=== PATIENT | female | born 1970 | race Caucasian/White ===

== ENCOUNTER 2016-06-29 10:22 | Emergency (ER) | payer OTHER, MEDICAID ==
[~2016-06-29] VITALS: Ht 167.6 cm; Wt 52.2 kg
[2016-06-29] MEDS ORDERED: KETOROLAC TROMETH 60MG/2ML VIAL IM ONE (15:15)
[2016-06-29 17:07] VITALS: BP 99/58
== END 2016-06-29 17:11 | disposition home or self-care (01) ==
LOC: ER 10:24
DX: M75.102 Unspecified rotator cuff tear or rupture of left shoulder, not specified as traumatic (principal); G35 Multiple sclerosis
CPT/HCPCS: 73030; 73060; 96372; 99284; J1885

== ENCOUNTER 2022-07-07 18:01 | Inpatient (IN) | payer MEDICARE, OTHER ==
[~2022-07-07] VITALS: Ht 167.6 cm; Wt 51.7 kg
[2022-07-07 20:12] LABS: Basophils # (auto) 0 10 ^3/uL (0-0.2); Basophils % (auto) 0.5 % (0.0-2.0); Eosinophils # (auto) 0.1 10 ^3/uL (0-0.8); Eosinophils % (auto) 0.7 % (0.0-7.0); Hematocrit 29.2 % (36.0-46.0); Hemoglobin 9.7 g/dL (12.2-16.2); Lymphocytes # (auto) 0.7 10 ^3/uL (0.4-5.4); Lymphocytes % (auto) 8.5 % (10.0-50.0); Mean Corpuscular Hemoglobin 27.6 pg (28.0-32.0); Mean Corpuscular Hgb Conc. 33.3 g/dL (32.0-36.0); Mean Corpuscular Volume 82.8 fL (80.0-100.0); Monocytes # (auto) 0.6 10 ^3/uL (0-1.3); Monocytes % (auto) 7.4 % (0.0-12.0); Neutrophils # (auto) 6.8 10 ^3/uL (1.6-8.6); Neutrophils % (auto) 82.9 % (37.0-80.0); Nucleated Red Blood Cells % 0.1 %; Red Blood Cells 3.53 10^6/uL (4.0-5.20); Red Cell Distribution Width 18.7 % (11.8-14.3); White Blood Cell 8.3 10^3/uL (4.4-10.8)
[2022-07-07 20:39] LABS: Potassium 3.8 mmol/L (3.5-5.1)
[2022-07-07 20:45] LABS: Albumin 2.9 g/dL (3.4-5.0); BUN/Creatinine Ratio 32.7 (10.0-20.0); Bilirubin, Total 0.7 mg/dL (0.2-1.0); Calcium 8.1 mg/dL (8.5-10.1); Total Protein 6.2 g/dL (6.4-8.2)
[2022-07-07] MEDS ORDERED: SODIUM CHLORIDE 0.9% 1,000 ML IV ONE (23:45)
[2022-07-08] MEDS ORDERED: PIPERACILLIN-TAZOB 3.375GM 100 ML IV ONE (02:15)
[2022-07-08] MEDS ORDERED: VANCOMYCIN 1GM/250ML 250 ML IV ONE (02:15)
[2022-07-08] MEDS ORDERED: IOHEXOL 300 MG/ML 100ML BOTTLE IJ ONE (02:22)
[2022-07-08] MEDS ORDERED: ONDANSETRON HCL 4 MG/2 ML VIAL IV PRN (03:30)
[2022-07-08] MEDS ORDERED: ACETAMINOPHEN 325 MG TAB PO PRN (03:30)
[2022-07-08] MEDS ORDERED: HYDROcodone-ACET 5/325MG TAB PO PRN (03:30)
[2022-07-08] MEDS: cefTRIAXone 1GM/50ML D5W 50 ML IV SCH (09:07)
[2022-07-08] MEDS: ENOXAPARIN SOD 40 MG/0.4 ML SYRINGE SC SCH (09:07)
[2022-07-08] MEDS: PANTOPRAZOLE 40 MG TAB PO SCH (09:08)
[2022-07-08] MEDS: CLINDAMYCIN 600MG IV 50 ML IV SCH ×3 (09:57→22:36)
[2022-07-08 16:00] LABS: Urine Bacteria NONE SEEN /hpf (None Seen); Urine Blood 2+ /uL (Negative); Urine Specific Gravity 1.036 (1.001-1.035); Urine WBC 171 /hpf (0 - 5)
[2022-07-08 22:00] VITALS: BP 93/44
[2022-07-08 23:10] VITALS: BP 91/57
[2022-07-09 05:00] VITALS: BP 82/38
[2022-07-09 06:08] LABS: Basophils # (auto) 0 10 ^3/uL (0-0.2); Eosinophils # (auto) 0.1 10 ^3/uL (0-0.8); Hemoglobin 8.1 g/dL (12.2-16.2); Lymphocytes # (auto) 0.8 10 ^3/uL (0.4-5.4); Mean Corpuscular Volume 82.6 fL (80.0-100.0); Monocytes # (auto) 0.4 10 ^3/uL (0-1.3); Neutrophils # (auto) 3.2 10 ^3/uL (1.6-8.6); Nucleated Red Blood Cells % 0.1 %
[2022-07-09 06:10] LABS: Basophils % (auto) 0.6 % (0.0-2.0); Eosinophils % (auto) 2.7 % (0.0-7.0); Hematocrit 23.9 % (36.0-46.0); Lymphocytes % (auto) 17.1 % (10.0-50.0); Mean Corpuscular Hgb Conc. 33.9 g/dL (32.0-36.0); Monocytes % (auto) 8.6 % (0.0-12.0); Red Cell Distribution Width 18.9 % (11.8-14.3); White Blood Cell 4.6 10^3/uL (4.4-10.8)
[2022-07-09] MEDS: CLINDAMYCIN 600MG IV 50 ML IV SCH ×3 (06:29→21:35)
[2022-07-09 06:31] LABS: BUN/Creatinine Ratio 26.2 (10.0-20.0); Calcium 7.9 mg/dL (8.5-10.1); Potassium 3.8 mmol/L (3.5-5.1)
[2022-07-09 09:00] VITALS: BP 106/54
[2022-07-09] MEDS: cefTRIAXone 1GM/50ML D5W 50 ML IV SCH (09:00)
[2022-07-09] MEDS: PANTOPRAZOLE 40 MG TAB PO SCH (10:02)
[2022-07-09] MEDS: ENOXAPARIN SOD 40 MG/0.4 ML SYRINGE SC SCH (10:02)
[2022-07-09 13:00] VITALS: BP 92/53
[2022-07-09 17:00] VITALS: BP 113/42
[2022-07-09 22:00] VITALS: BP 107/51
[2022-07-10 05:00] VITALS: BP 105/48
[2022-07-10] MEDS: CLINDAMYCIN 600MG IV 50 ML IV SCH ×3 (06:31→21:29)
[2022-07-10 08:00] VITALS: BP 87/39
[2022-07-10 09:00] VITALS: BP 102/58
[2022-07-10] MEDS: ENOXAPARIN SOD 40 MG/0.4 ML SYRINGE SC SCH (10:05)
[2022-07-10] MEDS: PANTOPRAZOLE 40 MG TAB PO SCH (10:05)
[2022-07-10] MEDS: cefTRIAXone 1GM/50ML D5W 50 ML IV SCH (10:06)
[2022-07-10 13:00] VITALS: BP 87/39
[2022-07-10 17:06] VITALS: BP 86/39
[2022-07-10 22:00] VITALS: BP 85/43
[2022-07-11 05:00] VITALS: BP 90/35
[2022-07-11] MEDS: CLINDAMYCIN 600MG IV 50 ML IV SCH ×3 (06:31→21:15)
[2022-07-11 08:00] VITALS: BP 88/43
[2022-07-11 09:00] VITALS: BP 88/43
[2022-07-11] MEDS: cefTRIAXone 1GM/50ML D5W 50 ML IV SCH (09:06)
[2022-07-11] MEDS: ENOXAPARIN SOD 40 MG/0.4 ML SYRINGE SC SCH (09:06)
[2022-07-11] MEDS: PANTOPRAZOLE 40 MG TAB PO SCH ×2 (09:06→09:12)
[2022-07-11] MEDS ORDERED: CIPR-273 PO (10:17)
[2022-07-11 13:00] VITALS: BP 81/36
[2022-07-11 17:00] VITALS: BP 79/41
[2022-07-11 22:00] VITALS: BP 92/29
[2022-07-12 05:00] VITALS: BP 91/36
[2022-07-12] MEDS: CLINDAMYCIN 600MG IV 50 ML IV SCH ×2 (05:33→14:01)
[2022-07-12 08:00] VITALS: BP 83/48
[2022-07-12] MEDS: ENOXAPARIN SOD 40 MG/0.4 ML SYRINGE SC SCH (08:58)
[2022-07-12] MEDS: cefTRIAXone 1GM/50ML D5W 50 ML IV SCH (08:58)
[2022-07-12] MEDS: PANTOPRAZOLE 40 MG TAB PO SCH (08:58)
[2022-07-12 12:00] VITALS: BP 83/49
[2022-07-12 16:00] VITALS: BP 89/45
== END 2022-07-12 19:10 | disposition home health service (06) | DRG 593 ==
LOC: ER 18:01 → OVERFLOW 07-08 03:37 → CENTRAL 07-08 18:40
PROVIDERS: ADMIT Nurse Practitioner; ATTEND Internal Medicine Geriatric Medicine
DX: L89.222 Pressure ulcer of left hip, stage 2 (principal); E44.0 Moderate protein-calorie malnutrition; N39.0 Urinary tract infection, site not specified; Z68.1 Body mass index [BMI] 19.9 or less, adult; G35 Multiple sclerosis; L89.213 Pressure ulcer of right hip, stage 3; D64.9 Anemia, unspecified; B96.4 Proteus (mirabilis) (morganii) as the cause of diseases classified elsewhere; B96.20 Unspecified Escherichia coli [E. coli] as the cause of diseases classified elsewhere; Z74.01 Bed confinement status
CPT/HCPCS: 36415; 71045; 74177; 80048; 80053; 81001; 83605; 83735; 84484; 85025; 87040; 87077; 87186; 87205; 96365; 96366; 96367; 97163; G0378; J0696; J2543; J3490